=== PATIENT | female | born 1960 | race Caucasian/White ===

== ENCOUNTER 2016-12-02 12:22 | Emergency (ER) | payer OTHER ==
[~2016-12-02] VITALS: Ht 167.6 cm; Wt 123.0 kg
[~2016-12-02 12:22] MED LIST: ALPR.25 PO; CYCL5TAB PO; CYMB60CA PO; FENT50DI T-DERMAL; HYDR-3583 PO; LEVO150T7 PO; MENE1.254 PO; TRAZ50TA12 PO
[2016-12-02 12:42] VITALS: BP 140/77; PULSE 81; RESP 16; TEMP 99; O2SAT 96
[2016-12-02] MEDS ORDERED: ASPI1POW6 PO (13:24)
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
[2016-12-02] MEDS ORDERED: PROCHLORPERAZINE INJ 10 MG/2 ML VIAL IM ONE (14:00)
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
== END 2016-12-02 14:46 | disposition home or self-care (01) ==
LOC: PHEFT 12:22
DX: R51 Headache (principal); M54.2 Cervicalgia; G89.29 Other chronic pain; R11.0 Nausea; M54.9 Dorsalgia, unspecified; E07.9 Disorder of thyroid, unspecified; E78.00 Pure hypercholesterolemia, unspecified; Z87.39 Personal history of other diseases of the musculoskeletal system and connective tissue; Z86.59 Personal history of other mental and behavioral disorders; Z86.79 Personal history of other diseases of the circulatory system; V89.2XXA Person injured in unspecified motor-vehicle accident, traffic, initial encounter; Y92.410 Unspecified street and highway as the place of occurrence of the external cause
CPT/HCPCS: 70450; 96372; 99284; J0780

== ENCOUNTER 2017-01-06 17:20 | Emergency (ER) | payer OTHER ==
[~2017-01-06] VITALS: Ht 167.6 cm; Wt 115.0 kg
[~2017-01-06 17:20] MED LIST changes: +ASPI1POW6 PO
[2017-01-06 17:25] VITALS: BP 138/79; PULSE 82; RESP 18; TEMP 98.4; O2SAT 94
--- NOTE | 2017-01-06 18:28 | PD ---
HPI Chief Complaint: Skin Problem Time Seen by Provider: 18:20 Travel History International Travel<30 days: No Contact w/Intl Traveler<30days: No Traveled to known affect area: No History of Present Illness HPI 56-year-old female presents to the ED for evaluation of 10 day history of rash of the right torres. She endorses mild swelling and occasional pruritus. She states that she's been treating with lotion with no improvement in symptoms. She denies numbness, tingling, weakness, limitations range of motion of the extremity. Denies previous history of rash. She does endorse increased stress over the last few months. PFSH Past Medical History Hx Anticoagulant Therapy: No Arthritis: Yes Anxiety: Yes Cardiovascular Problems: Yes (CHOL) High Cholesterol: Yes Diabetes: No Diminished Hearing: No Fibromyalgia: Yes Herniated Disk: Yes (CERVICAL LUMBAR STENOSIS) Musculoskeletal: Yes (CHRONIC BACK PAIN AND KNEE) Neurologic: Yes (SPINAL STENOSIS) Immunizations Current: No Thyroid Disease: Yes ?: Not Menopausal: Yes Past Surgical History Abdominal Surgery: Yes (LAP BAND) Cholecystectomy: Yes Gynecologic Surgery: Yes (RIGHT OOPHRECTOMY) Hysterectomy: Yes Tonsillectomy: Yes Social History Alcohol Use: Yes (RARELY) Tobacco Use: No Substance Use: No Allergies-Medications (Allergen,Severity, Reaction): Coded Allergies: Cortisone (Verified Allergy, Severe, SOB, 01/06/17) Tetracycline (Verified Allergy, Severe, VOMITING, ILL, 01/06/17) Uncoded Allergies: STEROIDS (Allergy, Severe, SOB, 12/02/16) . Reported Meds & Prescriptions Reported Meds & Active Scripts Active Reported Hydrocodone-Acetaminophen 10-325 mg Tab 1 Tab PO Q4H PRN Fentanyl Patch 72 HR (Fentanyl) 50 Mcg/Hr Patch 75 Mcg T-DERMAL Q72H Remove old patch when new one placed. Xanax (Alprazolam) 0.25 Mg Tab 1 Mg PO DAILY Trazodone (Trazodone HCl) 50 Mg Tab 100 Mg PO HS Levothyroxine (Levothyroxine Sodium) 150 Mcg Tab 150 Mcg PO DAILY Menest (Estrogens, Esterified) 1.25 Mg Tab 1.25 Mg PO DAILY Cymbalta DR (Duloxetine HCl) 60 Mg Capdr 60 Mg PO DAILY Review of Systems Except as stated in HPI: all other systems reviewed are Neg Physical Exam Narrative GENERAL: Well-nourished, well-developed patient. SKIN: Warm and dry. There is a large erythematous, blanching, mildly scaling, slightly hyperpigmented patch over the anterior tibia of the right leg. Scattered excoriations. HEAD: Normocephalic. EYES: No scleral icterus. No injection or drainage. NECK: Supple, trachea midline. No JVD or lymphadenopathy. CARDIOVASCULAR: Regular rate and rhythm without murmurs, gallops, or rubs. RESPIRATORY: Breath sounds equal bilaterally. No accessory muscle use. GASTROINTESTINAL: Abdomen soft, non-tender, nondistended. MUSCULOSKELETAL: No cyanosis, or edema. BACK: Nontender without obvious deformity. No CVA tenderness. Data Data Last Documented VS Vital Signs Date Time Temp Pulse Resp B/P Pulse Ox O2 Delivery O2 Flow Rate FiO2 01/06/17 17:42 82 18 01/06/17 17:25 98.4 138/79 94 MDM Medical Decision Making Medical Screen Exam Complete: Yes Emergency Medical Condition: Yes Differential Diagnosis Stasis dermatitis versus contact dermatitis versus drug rash versus candidiasis versus other Narrative Course 56-year-old female presents to the ED for evaluation of 10 day history of rash of the right torres. She endorses mild swelling and occasional pruritus. She states that she's been treating with lotion with no improvement in symptoms. She denies numbness, tingling, weakness, limitations range of motion of the extremity. Denies previous history of rash. She does endorse increased stress over the last few months. Vitals reviewed. Patient is well appearing. There is a large erythematous, blanching, mildly scaling, slightly hyperpigmented patch over the anterior tibia of the right leg. Scattered excoriations. Rash is actually suspicious for skin changes related to venous insufficiency. However the history is inconsistent with this. Unfortunately the patient endorses allergies to cortisone and steroids. She is instructed to avoid hot shower, use Benadryl as needed for the itch, apply mullerian type lotion 2 times a day, follow-up with the legal contracts specialist. She indicated understanding of instructions and was amenable to plan of care. She is stable and discharged home. Diagnosis Primary Impression: Localized rash Referrals: Margin Analyst Patient Instructions: Acute Rash (ED), General Instructions Additional Instructions: Avoid hot showers as this can worsen rash. Benadryl as directed on the label as needed for itch. Emollient type lotion such as Aquaphor 2 times a day. Wash hands before and after touching the rash. Follow-up with the legal contracts specialist as discussed. Return to the ED for any urgent or emergent medical condition. Disposition: 01 DISCHARGE HOME Condition: Stable Sheri Erwin Jan 06, 2017 18:28
== END 2017-01-06 18:34 | disposition home or self-care (01) ==
LOC: PHEFT 17:20
DX: R21 Rash and other nonspecific skin eruption (principal); E78.00 Pure hypercholesterolemia, unspecified; M79.7 Fibromyalgia
CPT/HCPCS: 99282